=== PATIENT | female | born 1935 | race American Indian/Alaskan Native ===

== ENCOUNTER 2017-03-23 14:09 | Emergency (ER) | payer MEDICARE ==
[2017-03-23 14:51] VITALS: BP 113/47
--- NOTE | 2017-03-23 18:17 | Emergency Department Report ---
ED Abdominal Pain HPI - General Chief Complaint: Rectal Pain Stated Complaint: RECTAL PROLAPSE Time Seen by Provider: 03/23/17 17:11 Source: EMS, old records reviewed Mode of arrival: Stretcher Limitations: Language Barrier - History of Present Illness Initial Comments: 81-year-old female with a past medical history diabetes, hypertension, and Alzheimer's presents to the hospital with complaints of rectal prolapse noticed at noon today by shelter staff. Patient complains of mild discomfort to anal area but is in no acute distress. - Related Data Allergies Allergy/AdvReac Type Severity Reaction Status Date / Time No Known Allergies Allergy Unverified 03/23/17 14:46 ED Review of Systems ROS: Stated complaint: RECTAL PROLAPSE Other details as noted in HPI Comment: Unobtainable due to pts medical conditions (dementia) ED Past Medical Hx - Past Medical History Hx Hypertension: Yes Hx Diabetes: Yes Hx Psychiatric Treatment: Yes Additional medical history: alzheimers - Social History Smoking Status: Never Smoker Substance Use Type: None ED Physical Exam - General Limitations: Language Barrier - Other Other exam information: General: No limitations, patient is alert in no acute distress Head exam: Atraumatic, normocephalic Eyes exam: Normal appearance ENT: Moist mucous membrane, normal oropharynx Neck exam: Normal inspection, full range of motion, no meningismus nontender Respiratory exam: Clear to auscultation bilateral, no wheezes, rales, crackles Cardiovascular: Normal rate and rhythm, normal heart sounds Abdomen: Soft, nondistended, and nontender, with normal bowel sounds, no rebound, or guarding Rectal: Mild rectal prolapse with pink mucosa. No signs of necrosis or bleeding. Extremity: Full range of motion normal inspection no deformity Back: Normal Inspection, full range of motion, no tenderness Neurologic: Alert, oriented to self. No motor or sensory deficit. Requires assistance with ambulation Psychiatric: normal affect, normal mood Skin: Warm, dry, intact ED Course Vital Signs 03/23/17 14:47 Temperature 97.5 F L Pulse Rate 68 Respiratory 20 Rate Blood Pressure 113/47 O2 Sat by Pulse 99 Oximetry - Consultations Consultation #1: 03/23/17 18:[address] Philippe Recommend sitz baths with soapy water 3 times a day and follow up in his office Sunday at 11:15 AM ED Medical Decision Making - Medical Decision Making Plan discharge patient home with sitz bath instructions and outpatient surgery follow-up - Differential Diagnosis rectal prolapse, hemorrhoids Critical Care Time: No Critical care attestation.: If time is entered above; I have spent that time in minutes in the direct care of this critically ill patient, excluding procedure time. ED Disposition Clinical Impression: Rectal prolapse, Dementia Disposition: TO HOME OR SELFCARE Is pt being admited?: No Does the pt Need Aspirin: No Condition: Stable Instructions: Sitz Bath (GEN) Additional Instructions: Sits in a sitz bath 3 times a day. Follow-up with the surgeon as directed on Sunday at 11:15 AM. Return for increased pain, bleeding, or discoloration of pink rectal tissue. Referrals: ANNA THAYER MD [Primary Care Provider] - 3-5 Days BLANCHE PHILIPPE MD [Staff Physician] - 03/27/17 11:15 am Time of Disposition: 18:18
== END 2017-03-23 20:20 | disposition home or self-care (01) ==
LOC: ED 14:09
DX: K62.3 Rectal prolapse (principal); F03.90 Unspecified dementia, unspecified severity, without behavioral disturbance, psychotic disturbance, mood disturbance, and anxiety; I10 Essential (primary) hypertension; E11.9 Type 2 diabetes mellitus without complications
CPT/HCPCS: 99283

== ENCOUNTER 2017-05-17 19:57 | Emergency (ER) | payer MEDICARE ==
[2017-05-17 21:18] LABS: Bacteria,Urine 2+ /HPF (Negative); Bilirubin,Urine NEG (Negative); Blood,Urine NEG (Negative); Ketones,Urine NEG (Negative); Leukocyte Esterase,Urine SM (Negative); Mucus,Urine FEW /HPF; Nitrite,Urine NEG (Negative); Protein,Urine <15 mg/dL mg/dL (Negative); Urobilinogen,Urine < 2.0 mg/dL (<2.0)
[2017-05-17] MEDS ORDERED: ZOFRAN IV ONE (21:50)
--- NOTE | 2017-05-17 21:50 | Emergency Department Report ---
ED General Adult HPI - General Chief complaint: Fall Stated complaint: FALL/EMESIS Time Seen by Provider: 05/17/17 20:52 Source: EMS Mode of arrival: Stretcher Limitations: Physical Limitation - History of Present Illness Initial comments: Condition is an 81-year-old female past medical history of dementia who presents status post fall. Patient fell from wheelchair she had no loss of consciousness she is only complaining of mild pain she has also been having nausea for the last couple months she states that whenever she eats something she just usually vomits it back up. Patient's pain is located on the left side and right side of her nose it is a 2 out 10 and doesn't radiate nothing makes it better or worse. - Related Data Previous Rx's Medication Instructions Recorded Last Taken Type Clindamycin [Clindamycin CAP] 300 mg PO Q6H #30 capsule 05/18/17 Unknown Rx Ondansetron [Zofran Odt] 4 mg PO Q8HR PRN #15 tab.rapdis 05/18/17 Unknown Rx Allergies Allergy/AdvReac Type Severity Reaction Status Date / Time No Known Allergies Allergy Verified 05/17/17 20:46 ED Review of Systems ROS: Stated complaint: FALL/EMESIS Other details as noted in HPI Constitutional: denies: chills, fever Eyes: denies: eye pain, eye discharge, vision change ENT: as per HPI. denies: ear pain, throat pain Respiratory: denies: cough, shortness of breath, wheezing Cardiovascular: denies: chest pain, palpitations Endocrine: no symptoms reported Gastrointestinal: denies: abdominal pain, nausea, diarrhea Genitourinary: denies: urgency, dysuria, discharge Musculoskeletal: denies: back pain, joint swelling, arthralgia Skin: denies: rash, lesions Neurological: denies: headache, weakness, paresthesias Psychiatric: denies: anxiety, depression Hematological/Lymphatic: denies: easy bleeding, easy bruising ED Past Medical Hx - Past Medical History Hx Hypertension: Yes Hx Diabetes: Yes Hx Psychiatric Treatment: Yes Additional medical history: alzheimers - Surgical History Past Surgical History?: No - Social History Smoking Status: Never Smoker Substance Use Type: None - Medications Home Medications: Home Medications Medication Instructions Recorded Confirmed Last Taken Type Clindamycin [Clindamycin CAP] 300 mg PO Q6H #30 capsule 05/18/17 Unknown Rx Ondansetron [Zofran Odt] 4 mg PO Q8HR PRN #15 tab.rapdis 05/18/17 Unknown Rx ED Physical Exam - General Limitations: Physical Limitation General appearance: alert, in no apparent distress - Head Head exam: Present: normocephalic - Eye Eye exam: Present: normal appearance - ENT ENT exam: Present: mucous membranes moist, other (tenderness to palpation of the the left cheek) - Neck Neck exam: Present: normal inspection - Respiratory Respiratory exam: Present: normal lung sounds bilaterally. Absent: respiratory distress - Cardiovascular Cardiovascular Exam: Present: regular rate, normal rhythm. Absent: systolic murmur, diastolic murmur, rubs, gallop - GI/Abdominal GI/Abdominal exam: Present: soft, normal bowel sounds - Extremities Exam Extremities exam: Present: normal inspection - Back Exam Back exam: Present: normal inspection - Neurological Exam Neurological exam: Present: alert, oriented X3 - Psychiatric Psychiatric exam: Present: normal affect, normal mood - Skin Skin exam: Present: warm, dry, intact, normal color. Absent: rash ED Course Vital Signs 05/17/17 20:47 Temperature 97.8 F Pulse Rate 68 Respiratory 16 Rate Blood Pressure 177/50 O2 Sat by Pulse 98 Oximetry ED Medical Decision Making - Radiology Data Radiology results: report reviewed, image reviewed CT facial bone: Shows nondisplaced anterior maxillary wall fracture CT cervical spine: Shows no acute osseous injury CT head shows no acute intercranial process and no bleed - Medical Decision Making Medical diagnosis: Facial fracture differential diagnosis: Cervical fracture, or cranial hemorrhage I'll get CT had CT cervical spine CT facial bone and I will give patient Zofran for her nausea. Patient has a mild nondisplaced fracture of the anterior maxillary wall. I'll send patient home with clindamycin and Zofran for her nausea. An OUTPATIENT follow-up for an ENT doctor. Patient has no acute surgical intervention that is required and can follow-up as an outpatient. Critical care attestation.: If time is entered above; I have spent that time in minutes in the direct care of this critically ill patient, excluding procedure time. ED Disposition Clinical Impression: Facial pain Fall Qualifiers: Encounter type: initial encounter Qualified Code(s): W19.XXXA - Unspecified fall, initial encounter Maxillary sinus fracture Qualifiers: Encounter type: initial encounter Fracture type: closed Qualified Code(s): S02.401A - Maxillary fracture, unspecified side, initial encounter for closed fracture Disposition: DC-01 TO HOME OR SELFCARE Is pt being admited?: No Does the pt Need Aspirin: No Condition: Stable Instructions: Facial Fracture (ED) Additional Instructions: Your facial fracture is nondisplaced and does not need any acute surgical intervention. Please f/u with ENT as an outpatient. You are okay to go back to your skilled nursing. Please no nose blowing. YOU HAVE BEEN MEDICALLY CLEARED. Prescriptions: Clindamycin [Clindamycin CAP] 300 mg PO Q6H #30 capsule Ondansetron [Zofran Odt] 4 mg PO Q8HR PRN #15 tab.rapdis PRN Reason: Nausea Referrals: [facility] [Provider Group] - 3-5 [facility]] - 3-5 Days OMAR CARTER MD [Staff Physician] - 3-5 Days
--- NOTE | 2017-05-17 22:21 | Cat Scan Report ---
FINAL REPORT EXAM: CT HEAD/BRAIN WO CON HISTORY: fall TECHNIQUE: Axial noncontrast CT images of the brain were performed. Total exam DLP 1632.83 mGy-cm Comparison: None FINDINGS: There is moderate cortical and central atrophy with ex vacuo dilatation lateral ventricles. There are no acute extra-axial fluid collections or intraparenchymal blood products. Ventricles and cisterns have a normal configuration. There is no midline shift. There is no mass effect. There are no intraparenchymal blood products or extra-axial fluid collections. There are air bubbles in the bilateral infratemporal fossae, with incompletely imaged fractures of the left anterior and lateral maxillary sinus sam, right anterior maxillary sinus wall. There are air-fluid levels in the bilateral maxillary sinuses. The lamina papyracea, medial maxillary sinus sam, nasal bones are not fractured. There appears to be a mildly displaced fracture of the medial right pterygoid plate. IMPRESSION: No acute intracranial posttraumatic abnormality. Specifically, no blood products. Incompletely imaged midface fractures including right medial pterygoid plate, right lateral wall maxillary sinus, left lateral and anterior wall maxillary sinuses. Recommend CT facial bones/skullbase for further assessment.
--- NOTE | 2017-05-17 22:26 | Cat Scan Report ---
FINAL REPORT EXAM: CT CERVICAL SPINE WO CON HISTORY: fall TECHNIQUE: Axial noncontrast CT images of the cervical spine were performed. Multiplanar reformats are performed on the acquisition scanner. FINDINGS: Bony algorithm was not applied. There is degenerative osteophytic change. There is motion degradation. The reconstructed images are insufficient. IMPRESSION: Suboptimal exam with motion degradation, non bony algorithm, and slice thickness not appropriate for trauma. Given the patient's severity of midface fractures, recommend repeat CT cervical spine.
[2017-05-18] MEDS ORDERED: VERSED IV NR (02:00)
[2017-05-18] MEDS ORDERED: ATIVAN IV ONE (02:27)
--- NOTE | 2017-05-18 04:37 | Cat Scan Report ---
FINAL REPORT PROCEDURE: CT FACIAL BONES WO CON TECHNIQUE: Computerized tomography of the facial bones and soft tissues with axial and coronal sections performed from the cranial aspect of the frontal sinuses to the caudal portion of the mandible without contrast material. HISTORY: facial pain bruising around orbits COMPARISON: No prior studies are available for comparison. FINDINGS: Bones: The mandible and the temporomandibular joints are intact. Zygomatic arches are intact. Nasal bone and anterior maxillary spine are intact. The bony orbital sam are intact. There are nondisplaced fractures of the anterior sam of the maxillary sinuses bilaterally. Paranasal sinuses: There is fluid in the maxillary sinuses.. Soft tissues: There is subcutaneous air surrounding the maxillary sinuses most likely related to fractures.. Other: There is no radiopaque foreign body.. IMPRESSION: Nondisplaced fractures of the maxillary sinus sam anteriorly. There is surrounding subcutaneous air. There fluid in the maxillary sinuses. The orbital sam and orbital contents are intact. The nasal bone is intact.
--- NOTE | 2017-05-18 05:10 | Cat Scan Report ---
FINAL REPORT EXAM: CT C-Spine w/o Contrast CLINICAL INDICATIONS: recommended repeat FINDINGS: Axial images obtained of the cervical spine without intravenous contrast. Sagittal and coronal reconstructions also obtained. Comparison is made to the prior examination from May 17. There are prominent degenerative changes of the cervical spine with multilevel facet joint arthropathy, narrowing of intervertebral disc spaces and disc osteophyte complexes. The reconstructions show significant artifact and decreased resolution. Images mildly degraded by motion artifact. No evidence is seen of acute fracture or dislocation. There is loss of the cervical lordosis which may reflect muscle spasm or may be positional. IMPRESSION: PROMINENT DEGENERATIVE CHANGES OF THE CERVICAL SPINE. NO EVIDENCE IS SEEN OF ACUTE CERVICAL SPINE FRACTURE. LIMITED AND SUBOPTIMAL SAGITTAL AND CORONAL RECONSTRUCTIONS. LOSS OF THE CERVICAL LORDOSIS WHICH MAY REFLECT MUSCLE SPASM OR MAY BE POSITIONAL.
[2017-05-18] MEDS ORDERED: PHENERGAN PO ONE (05:12)
[2017-05-18 05:59] VITALS: BP 130/79
== END 2017-05-18 06:00 | disposition home or self-care (01) ==
LOC: ED 19:57
DX: S02.40DA Maxillary fracture, left side, initial encounter for closed fracture (principal); I10 Essential (primary) hypertension; E11.9 Type 2 diabetes mellitus without complications; G30.9 Alzheimer's disease, unspecified; F02.80 Dementia in other diseases classified elsewhere, unspecified severity, without behavioral disturbance, psychotic disturbance, mood disturbance, and anxiety; W17.89XA Other fall from one level to another, initial encounter; Y93.89 Activity, other specified; Y92.89 Other specified places as the place of occurrence of the external cause; Y99.8 Other external cause status
CPT/HCPCS: 70450; 70486; 72125; 81001; 87076; 87086; 87186; 93005; 93010; 96374; 96375; 99284; J2060; J2250; J2405; Q0169